=== PATIENT | female | born 1990 | race Caucasian/White ===

== ENCOUNTER → 2021-03-05 | Outpatient (REF) | payer OTHER, SELFPAY ==
[2021-03-05 17:41] LABS: LUTEINIZING HORMONE 67.1 mIU/mL; PROLACTIN 18.8 NG/ML
== END ==
LOC: M LAB REF 16:23
PROVIDERS: ATTEND Obstetrics & Gynecology
DX: N92.1 Excessive and frequent menstruation with irregular cycle (principal)

== ENCOUNTER → 2021-08-20 | Outpatient (REF) | LOC: M LAB 09:27 | PROVIDERS: ATTEND Nurse Practitioner Adult Health | DX: Z02.1 Encounter for pre-employment examination (principal) ==

== ENCOUNTER → 2021-08-28 | Outpatient (REF) | LOC: M LAB 09:04 | PROVIDERS: ATTEND Nurse Practitioner Adult Health | DX: Z02.1 Encounter for pre-employment examination (principal) ==

== ENCOUNTER 2022-05-08 12:08 | Emergency (ER) | payer OTHER ==
[~2022-05-08] VITALS: Ht 157.5 cm; Wt 114.8 kg
[2022-05-08] MEDS ORDERED: METH25TAB PO (12:20)
[2022-05-08] MEDS ORDERED: PROP10TA56 PO (12:21)
[2022-05-08] MEDS ORDERED: ARIP1TAB4 PO (12:21)
[2022-05-08 17:16] VITALS: BP 140/83
== END 2022-05-08 17:23 | disposition home or self-care (01) ==
LOC: M ED 12:08
DX: S63.601A Unspecified sprain of right thumb, initial encounter (principal); X58.XXXA Exposure to other specified factors, initial encounter; Y92.018 Other place in single-family (private) house as the place of occurrence of the external cause; E05.00 Thyrotoxicosis with diffuse goiter without thyrotoxic crisis or storm; E66.9 Obesity, unspecified; Z86.14 Personal history of Methicillin resistant Staphylococcus aureus infection; Z88.1 Allergy status to other antibiotic agents; Z79.899 Other long term (current) drug therapy

== ENCOUNTER → 2022-06-09 | Outpatient (CLI) | payer OTHER ==
[~2022-06-09] MED LIST: ARIP1TAB4 PO; METH25TAB PO; PROP10TA56 PO
== END ==
LOC: M RAD 13:49
PROVIDERS: ATTEND Nurse Practitioner
DX: E04.9 Nontoxic goiter, unspecified (principal)
CPT/HCPCS: 78012; A9516

== ENCOUNTER → 2022-08-08 | Outpatient (REF) ==
[2022-08-08 13:22] LABS: RSV AMPLIFICATION NEGATIVE (NEGATIVE)
== END ==
LOC: M LABSMTC 10:47
PROVIDERS: ATTEND Family Medicine
DX: Z11.52 Encounter for screening for COVID-19 (principal)

== ENCOUNTER → 2022-09-15 | Outpatient (REF) | LOC: M EMP 08:32 | PROVIDERS: ATTEND Family Medicine | DX: Z11.52 Encounter for screening for COVID-19 (principal) ==

== ENCOUNTER → 2022-10-06 | Outpatient (REF) | LOC: M EMP 08:54 | PROVIDERS: ATTEND Family Medicine | DX: Z11.52 Encounter for screening for COVID-19 (principal) ==

== ENCOUNTER 2022-12-27 10:34 | Inpatient (IN) | payer OTHER ==
[~2022-12-27] VITALS: Ht 152.4 cm; Wt 116.2 kg
[2022-12-27] VITALS (7 sets, daily range): BP systolic 103–152; BP diastolic 58–86
[~2022-12-27 10:34] MED LIST changes: +FAMO10TA50 PO; +FAMO20TA PO; +SERT-141 PO
[2022-12-27] MEDS ORDERED: LR 1,000 ML IV SCH ×2 (10:45→15:10)
[2022-12-27] MEDS ORDERED: PROP60TA14 PO (11:06)
[2022-12-27] MEDS ORDERED: MULTCHW14 PO (12:16)
[2022-12-27] MEDS ORDERED: ALAV10TA4 PO (12:16)
[2022-12-27] MEDS ORDERED: LIDOCAINE W/EPINEPHRINE 1% 20ML VIAL As Ordered ONE (12:26)
[2022-12-27] MEDS ORDERED: SUCCINYLCHOLINE 100MG/5ML SYRINGE As Ordered ONE (13:20)
[2022-12-27] MEDS ORDERED: ROCURONIUM BROMIDE 50MG/5ML VIAL As Ordered ONE (13:20)
[2022-12-27] MEDS ORDERED: propofoL 200 MG/20 ML VIAL As Ordered ONE (13:20)
[2022-12-27] MEDS ORDERED: ACETAMINOPHEN 1000MG 100ML IV BAG As Ordered ONE (13:20)
[2022-12-27] MEDS ORDERED: MIDAZOLAM INJ 2MG/2ML VIAL As Ordered ONE (13:20)
[2022-12-27] MEDS ORDERED: LIDOCAINE 2% 100MG/5ML SDV (FOR ANES.) As Ordered ONE (13:20)
[2022-12-27] MEDS ORDERED: HYDROmorphone HCL 2MG/ML 1ML VIAL As Ordered ONE (13:20)
[2022-12-27] MEDS ORDERED: fentaNYL 100 MCG/2 ML INJECTION As Ordered ONE (13:20)
[2022-12-27] MEDS ORDERED: ONDANSETRON 4MG 2ML VIAL As Ordered ONE (13:20)
[2022-12-27] MEDS ORDERED: PHENYLephrine 500MCG 5ML (100MCG/ML) SYRINGE As Ordered ONE (13:20)
[2022-12-27] MEDS ORDERED: fentaNYL 100 MCG/2 ML INJECTION IV PRN (15:10)
[2022-12-27] MEDS ORDERED: HYDROMORPHONE HCL 0.5 MG/ 0.5 ML SYRINGE IV PRN (15:10)
[2022-12-27] MEDS ORDERED: ONDANSETRON 4MG 2ML VIAL IV PRN ×2 (15:10→15:55)
[2022-12-27] MEDS ORDERED: oxyCODONE 5MG TAB PO PRN (15:10)
[2022-12-27] MEDS ORDERED: METOCLOPRAMIDE INJ 10MG/2ML VIAL IV PRN (15:10)
[2022-12-27] MEDS ORDERED: PILL CUTTER 1 EACH XX PRN (16:00)
[2022-12-27] MEDS ORDERED: MOM 30ML SUSPENSION UDC PO PRN (16:50)
[2022-12-27] MEDS ORDERED: VENTAER INH (17:25)
[2022-12-27] MEDS ORDERED: OMEP-173 PO (17:25)
[2022-12-27] MEDS ORDERED: PROP10TA56 PO (17:25)
[2022-12-27] MEDS ORDERED: PRAZ2CAP PO (17:25)
[2022-12-27] MEDS ORDERED: HOME MED LIST COMPLETE! XX SCH (17:30)
[2022-12-27 17:48] LABS: HEMATOCRIT 37.8 % (36.0-47.0); HEMOGLOBIN 12.3 g/dl (12.0-15.5); MEAN CORPUSCULAR HEMOGLOBIN 27.3 pg (27.0-33.0); MEAN CORPUSCULAR HGB CONC 32.5 g/dl (32.0-36.5); PLATELET COUNT, AUTOMATED 333 10^3/uL (150-450); WHITE BLOOD COUNT 12.8 10^3/uL (4.0-10.0)
[2022-12-27 18:03] LABS: INR 0.99; PROTHROMBIN TIME 13.3 SECONDS (12.5-14.5)
[2022-12-27 18:20] LABS: ALBUMIN 3.6 G/DL (3.2-5.2); ALKALINE PHOSPHATASE 81 U/L (46-116); ALT/SGPT 18 U/L (7.0-40); AST/SGOT 17 U/L (<34); BILIRUBIN,TOTAL 0.5 MG/DL (0.3-1.2); BLOOD UREA NITROGEN 17 MG/DL (9-23); CALCIUM LEVEL 8.4 MG/DL (8.5-10.1); CARBON DIOXIDE LEVEL 24 MMOL/L (20-31); CHLORIDE LEVEL 103 MMOL/L (98-107); CREATININE FOR GFR 0.61 MG/DL (0.55-1.30); GLOMERULAR FILTRATION RATE > 60.0 (>60); GLUCOSE, FASTING 134 MG/DL (60-100); POTASSIUM SERUM 4.2 MMOL/L (3.5-5.1); SODIUM LEVEL 136 MMOL/L (136-145); TOTAL PROTEIN 6.8 G/DL (5.7-8.2)
[2022-12-27] MEDS: DOCUSATE SODIUM 100MG CAPSULE PO SCH (19:33)
[2022-12-27] MEDS: CALCIUM CARBONATE 500 MG CHEW U/D PO SCH (19:33)
[2022-12-27] MEDS: FAMOTIDINE 20 MG TAB PO SCH (19:33)
[2022-12-27] MEDS: LR 1,000 ML IV SCH (19:35)
[2022-12-27] MEDS: ANEXSIA, NORCO 7.5MG/325MG TABLET(HYDROCODONE/APAP) PO PRN (21:42)
[2022-12-27] MEDS: ACETAMINOPHEN TAB 650MG DOSE (2X325MG) PO PRN (22:47)
[2022-12-28 02:00] VITALS: BP 122/61
[2022-12-28] MEDS: LEVOTHYROXINE 25MCG TABLET (0.025MG) PO SCH (05:14)
[2022-12-28] MEDS: LR 1,000 ML IV SCH (05:15)
[2022-12-28 05:57] LABS: HEMATOCRIT 35.1 % (36.0-47.0); HEMOGLOBIN 11.3 g/dl (12.0-15.5); MEAN CORPUSCULAR HEMOGLOBIN 27.2 pg (27.0-33.0); MEAN CORPUSCULAR HGB CONC 32.2 g/dl (32.0-36.5); MEAN CORPUSCULAR VOLUME 84.4 fl (80.0-96.0); PLATELET COUNT, AUTOMATED 353 10^3/uL (150-450); RED BLOOD COUNT 4.16 10^6/uL (4.00-5.40); WHITE BLOOD COUNT 17.1 10^3/uL (4.0-10.0)
[2022-12-28 06:00] VITALS: BP 111/58
[2022-12-28 06:16] LABS: BLOOD UREA NITROGEN 12 MG/DL (9-23); CARBON DIOXIDE LEVEL 26 MMOL/L (20-31); CHLORIDE LEVEL 102 MMOL/L (98-107); GLOMERULAR FILTRATION RATE > 60.0 (>60); GLUCOSE, FASTING 111 MG/DL (60-100); MAGNESIUM LEVEL 1.5 MG/DL (1.8-2.4); POTASSIUM SERUM 4.1 MMOL/L (3.5-5.1); SODIUM LEVEL 137 MMOL/L (136-145)
[2022-12-28] MEDS: MAGNESIUM OXIDE 400MG TAB (MAG-OX) PO SCH ×3 (08:17→20:32)
[2022-12-28] MEDS: FAMOTIDINE 20 MG TAB PO SCH ×2 (08:17→20:33)
[2022-12-28] MEDS: DOCUSATE SODIUM 100MG CAPSULE PO SCH ×2 (08:17→20:00)
[2022-12-28] MEDS: CALCIUM CARBONATE 500 MG CHEW U/D PO SCH ×2 (08:17→20:33)
[2022-12-28] MEDS: SERTRALINE HCL 50 MG TAB PO SCH (08:18)
[2022-12-28] MEDS: ARIPiprazole 2 MG TAB PO SCH (08:18)
[2022-12-28] MEDS: ANEXSIA, NORCO 7.5MG/325MG TABLET(HYDROCODONE/APAP) PO PRN (08:19)
[2022-12-28 10:00] VITALS: BP 115/61
[2022-12-28 12:00] VITALS: BP 127/56
[2022-12-28] MEDS: METAMUCIL (PSYLLIUM) PACKET PO SCH ×2 (12:50→20:00)
[2022-12-28] MEDS: MIRALAX *UNIT DOSE* 17GM PACKET PO SCH ×2 (14:01→20:00)
[2022-12-28 18:00] VITALS: BP 121/53
[2022-12-28] MEDS: ACETAMINOPHEN TAB 650MG DOSE (2X325MG) PO PRN (20:38)
[2022-12-28 21:00] VITALS: BP 104/52
[2022-12-29 01:30] VITALS: BP 126/66
[2022-12-29] MEDS: LEVOTHYROXINE 25MCG TABLET (0.025MG) PO SCH (05:11)
[2022-12-29 06:00] VITALS: BP 116/61
[2022-12-29 06:28] LABS: HEMATOCRIT 33.5 % (36.0-47.0); HEMOGLOBIN 10.6 g/dl (12.0-15.5); MEAN CORPUSCULAR HEMOGLOBIN 27.4 pg (27.0-33.0); MEAN CORPUSCULAR HGB CONC 31.6 g/dl (32.0-36.5); MEAN CORPUSCULAR VOLUME 86.6 fl (80.0-96.0); PLATELET COUNT, AUTOMATED 298 10^3/uL (150-450); RED BLOOD COUNT 3.87 10^6/uL (4.00-5.40); WHITE BLOOD COUNT 10.2 10^3/uL (4.0-10.0)
[2022-12-29 07:34] LABS: BLOOD UREA NITROGEN 19 MG/DL (9-23); CARBON DIOXIDE LEVEL 30 MMOL/L (20-31); CHLORIDE LEVEL 102 MMOL/L (98-107); CREATININE FOR GFR 0.69 MG/DL (0.55-1.30); GLOMERULAR FILTRATION RATE > 60.0 (>60); GLUCOSE, FASTING 90 MG/DL (60-100); MAGNESIUM LEVEL 1.4 MG/DL (1.8-2.4); POTASSIUM SERUM 3.6 MMOL/L (3.5-5.1); SODIUM LEVEL 139 MMOL/L (136-145)
[2022-12-29] MEDS: SERTRALINE HCL 50 MG TAB PO SCH (08:08)
[2022-12-29] MEDS: CALCIUM CARBONATE 500 MG CHEW U/D PO SCH ×3 (08:08→20:22)
[2022-12-29] MEDS: ARIPiprazole 2 MG TAB PO SCH (08:08)
[2022-12-29] MEDS: MAGNESIUM OXIDE 400MG TAB (MAG-OX) PO SCH ×3 (08:09→20:23)
[2022-12-29] MEDS: MIRALAX *UNIT DOSE* 17GM PACKET PO SCH ×2 (08:09→21:00)
[2022-12-29] MEDS: METAMUCIL (PSYLLIUM) PACKET PO SCH ×2 (08:09→21:00)
[2022-12-29] MEDS: FAMOTIDINE 20 MG TAB PO SCH (08:09)
[2022-12-29] MEDS: DOCUSATE SODIUM 100MG CAPSULE PO SCH ×2 (08:10→20:22)
[2022-12-29] MEDS: CALCITRIOL 0.25 MCG CAP (S0169) PO SCH ×2 (09:23→20:23)
[2022-12-29] MEDS ORDERED: LEVOTHYROXINE 125MCG TABLET (0.125MG) PO ONE (10:30)
[2022-12-29 10:51] LABS: PHOSPHORUS LEVEL 5.3 MG/DL (2.5-4.9)
[2022-12-29 10:55] LABS: TOTAL 25(OH) VITAMIN D 30.5 NG/ML (20.0-100.0)
[2022-12-29] MEDS: CALCIUM GLUCONATE 1,000 MG in D5W MINI-BAG PLUS 100 ML IV SCH ×2 (12:08→14:52)
[2022-12-29 14:00] VITALS: BP 117/72
[2022-12-29] MEDS: MAG SULF 1GM/100ML (MAG RUN) 1 GM in IV 1 EA IV SCH ×2 (15:55→18:30)
[2022-12-29 19:06] LABS: ALBUMIN 3.4 G/DL (3.2-5.2); ALKALINE PHOSPHATASE 70 U/L (46-116); ALT/SGPT 18 U/L (7.0-40); AST/SGOT < 8 U/L (<34); BILIRUBIN,TOTAL 0.2 MG/DL (0.3-1.2); BLOOD UREA NITROGEN 18 MG/DL (9-23); CALCIUM LEVEL 7.8 MG/DL (8.5-10.1); CARBON DIOXIDE LEVEL 28 MMOL/L (20-31); CHLORIDE LEVEL 102 MMOL/L (98-107); CREATININE FOR GFR 0.63 MG/DL (0.55-1.30); GLOMERULAR FILTRATION RATE > 60.0 (>60); GLUCOSE, FASTING 88 MG/DL (60-100); SODIUM LEVEL 137 MMOL/L (136-145); TOTAL PROTEIN 6.7 G/DL (5.7-8.2)
[2022-12-29 20:30] VITALS: BP 123/70
[2022-12-29] MEDS ORDERED: CALCIUM CARBONATE 500 MG CHEW U/D PO SCH (21:00)
[2022-12-29] MEDS ORDERED: CALCIUM GLUCONATE 1,000 MG in D5W MINI-BAG PLUS 100 ML IV ONE (22:30)
[2022-12-30 06:00] VITALS: BP 105/57
[2022-12-30] MEDS: LEVOTHYROXINE 150MCG TABLET (0.15MG) PO SCH (06:09)
[2022-12-30 06:24] LABS: HEMATOCRIT 37.4 % (36.0-47.0); HEMOGLOBIN 12.2 g/dl (12.0-15.5); MEAN CORPUSCULAR HEMOGLOBIN 27.5 pg (27.0-33.0); MEAN CORPUSCULAR HGB CONC 32.6 g/dl (32.0-36.5); MEAN CORPUSCULAR VOLUME 84.4 fl (80.0-96.0); PLATELET COUNT, AUTOMATED 331 10^3/uL (150-450); RED BLOOD COUNT 4.43 10^6/uL (4.00-5.40); WHITE BLOOD COUNT 10.2 10^3/uL (4.0-10.0)
[2022-12-30 06:48] LABS: BLOOD UREA NITROGEN 14 MG/DL (9-23); CALCIUM LEVEL 7.7 MG/DL (8.5-10.1); CARBON DIOXIDE LEVEL 29 MMOL/L (20-31); CHLORIDE LEVEL 99 MMOL/L (98-107); CREATININE FOR GFR 0.61 MG/DL (0.55-1.30); GLOMERULAR FILTRATION RATE > 60.0 (>60); GLUCOSE, FASTING 94 MG/DL (60-100); MAGNESIUM LEVEL 1.5 MG/DL (1.8-2.4); SODIUM LEVEL 136 MMOL/L (136-145)
[2022-12-30] MEDS: MAG SULF 1GM/100ML (MAG RUN) 1 GM in IV 1 EA IV SCH ×3 (08:07→10:14)
[2022-12-30] MEDS: MIRALAX *UNIT DOSE* 17GM PACKET PO SCH ×2 (08:17→20:11)
[2022-12-30] MEDS: METAMUCIL (PSYLLIUM) PACKET PO SCH ×2 (08:17→20:11)
[2022-12-30] MEDS: SERTRALINE HCL 50 MG TAB PO SCH (09:18)
[2022-12-30] MEDS: DOCUSATE SODIUM 100MG CAPSULE PO SCH ×2 (09:18→20:10)
[2022-12-30] MEDS: CALCIUM CARBONATE 500 MG CHEW U/D PO SCH ×4 (09:18→20:11)
[2022-12-30] MEDS: CALCITRIOL 0.25 MCG CAP (S0169) PO SCH (09:18)
[2022-12-30] MEDS: MAGNESIUM OXIDE 400MG TAB (MAG-OX) PO SCH ×3 (09:18→20:11)
[2022-12-30] MEDS: ARIPiprazole 2 MG TAB PO SCH (09:18)
[2022-12-30] MEDS: VITAMIN D 1,000 INTERNATIONAL UNITS TABLET PO SCH (12:43)
[2022-12-30 14:00] VITALS: BP 122/66
[2022-12-30 18:33] LABS: ALBUMIN 3.7 G/DL (3.2-5.2); ALKALINE PHOSPHATASE 78 U/L (46-116); ALT/SGPT 21 U/L (7.0-40); AST/SGOT 17 U/L (<34); BILIRUBIN,TOTAL 0.2 MG/DL (0.3-1.2); BLOOD UREA NITROGEN 14 MG/DL (9-23); CALCIUM LEVEL 8.3 MG/DL (8.5-10.1); CARBON DIOXIDE LEVEL 28 MMOL/L (20-31); CHLORIDE LEVEL 99 MMOL/L (98-107); GLOMERULAR FILTRATION RATE > 60.0 (>60); GLUCOSE, FASTING 97 MG/DL (60-100); SODIUM LEVEL 138 MMOL/L (136-145); TOTAL PROTEIN 7.4 G/DL (5.7-8.2)
[2022-12-30] MEDS ORDERED: MAG SULF 1GM/100ML (MAG RUN) 1 GM in IV 1 EA IV ONE (19:30)
[2022-12-30 20:00] VITALS: BP 102/48
[2022-12-31] MEDS: LEVOTHYROXINE 150MCG TABLET (0.15MG) PO SCH (05:37)
[2022-12-31 06:00] VITALS: BP 120/75
[2022-12-31 06:19] LABS: HEMATOCRIT 39.4 % (36.0-47.0); HEMOGLOBIN 12.7 g/dl (12.0-15.5); MEAN CORPUSCULAR HEMOGLOBIN 27.5 pg (27.0-33.0); MEAN CORPUSCULAR HGB CONC 32.2 g/dl (32.0-36.5); MEAN CORPUSCULAR VOLUME 85.3 fl (80.0-96.0); PLATELET COUNT, AUTOMATED 391 10^3/uL (150-450); RED BLOOD COUNT 4.62 10^6/uL (4.00-5.40); WHITE BLOOD COUNT 12.2 10^3/uL (4.0-10.0)
[2022-12-31 06:53] LABS: ALBUMIN 3.5 G/DL (3.2-5.2); BLOOD UREA NITROGEN 14 MG/DL (9-23); CALCIUM LEVEL 8.5 MG/DL (8.5-10.1); CARBON DIOXIDE LEVEL 30 MMOL/L (20-31); CHLORIDE LEVEL 100 MMOL/L (98-107); CREATININE FOR GFR 0.69 MG/DL (0.55-1.30); GLOMERULAR FILTRATION RATE > 60.0 (>60); GLUCOSE, FASTING 100 MG/DL (60-100); PHOSPHORUS LEVEL 5.8 MG/DL (2.5-4.9); POTASSIUM SERUM 4.5 MMOL/L (3.5-5.1); SODIUM LEVEL 139 MMOL/L (136-145)
[2022-12-31] MEDS: SERTRALINE HCL 50 MG TAB PO SCH (08:18)
[2022-12-31] MEDS: ARIPiprazole 2 MG TAB PO SCH (08:18)
[2022-12-31] MEDS: CALCIUM CARBONATE 500 MG CHEW U/D PO SCH (08:18)
[2022-12-31] MEDS: VITAMIN D 1,000 INTERNATIONAL UNITS TABLET PO SCH (08:18)
[2022-12-31] MEDS: MIRALAX *UNIT DOSE* 17GM PACKET PO SCH (08:19)
[2022-12-31] MEDS: METAMUCIL (PSYLLIUM) PACKET PO SCH (08:19)
[2022-12-31] MEDS: DOCUSATE SODIUM 100MG CAPSULE PO SCH (08:19)
[2022-12-31] MEDS ORDERED: CALCITRIOL 0.25 MCG CAP (S0169) PO SCH (09:00)
[2022-12-31] MEDS ORDERED: LEVO150T7 PO (10:12)
[2022-12-31] MEDS ORDERED: CALC1CAP31 PO (10:12)
[2022-12-31] MEDS ORDERED: MIRA1POW3 PO (10:12)
[2022-12-31] MEDS ORDERED: CALC200T15 PO (10:12)
[2022-12-31] MEDS ORDERED: RA M500C PO (10:12)
[2022-12-31] MEDS ORDERED: CHOL125C6 PO (10:12)
== END 2022-12-31 11:55 | disposition home or self-care (01) | DRG 626 ==
LOC: M SDC 10:34 → M MSPAV 10:35 → OBSVTOIN 12-29 12:31
PROVIDERS: ADMIT Otolaryngology; ATTEND Otolaryngology
PROC: 0GTK0ZZ Resection of Thyroid Gland, Open Approach (ICD-10-PCS; principal; 2022-12-27 12:55)
DX: E06.5 Other chronic thyroiditis (principal); Z68.42 Body mass index [BMI] 45.0-49.9, adult; E66.01 Morbid (severe) obesity due to excess calories; K21.9 Gastro-esophageal reflux disease without esophagitis; F43.10 Post-traumatic stress disorder, unspecified; F41.8 Other specified anxiety disorders; J45.909 Unspecified asthma, uncomplicated; E89.0 Postprocedural hypothyroidism; Z79.899 Other long term (current) drug therapy; Z88.1 Allergy status to other antibiotic agents; E20.9 Hypoparathyroidism, unspecified

== ENCOUNTER → 2023-01-04 | Outpatient (CLI) | payer OTHER ==
[~2023-01-04] MED LIST changes: +ALAV10TA4 PO; +CALC1CAP31 PO; +CALC200T15 PO; +CHOL125C6 PO; +LEVO150T7 PO; +MIRA1POW3 PO; +MULTCHW14 PO; +OMEP-173 PO; +PRAZ2CAP PO; +PROP60TA14 PO; +RA M500C PO; +VENTAER INH
[2023-01-04 10:52] LABS: ALBUMIN 3.7 G/DL (3.2-5.2); ALKALINE PHOSPHATASE 74 U/L (46-116); ALT/SGPT 10 U/L (7.0-40); AST/SGOT 13 U/L (<34); BILIRUBIN,TOTAL 0.2 MG/DL (0.3-1.2); BLOOD UREA NITROGEN 12 MG/DL (9-23); CALCIUM LEVEL 8.6 MG/DL (8.5-10.1); CARBON DIOXIDE LEVEL 30 MMOL/L (20-31); CHLORIDE LEVEL 100 MMOL/L (98-107); CREATININE FOR GFR 0.66 MG/DL (0.55-1.30); GLOMERULAR FILTRATION RATE > 60.0 (>60); GLUCOSE, FASTING 89 MG/DL (60-100); MAGNESIUM LEVEL 1.7 MG/DL (1.8-2.4); PHOSPHORUS LEVEL 4.6 MG/DL (2.5-4.9); POTASSIUM SERUM 4.3 MMOL/L (3.5-5.1); SODIUM LEVEL 137 MMOL/L (136-145)
== END ==
LOC: M LAB 09:07
PROVIDERS: ATTEND Student in an Organized Health Care Education/Training Program
DX: E20.9 Hypoparathyroidism, unspecified (principal)